=== PATIENT | male | born 1985 | race Caucasian/White ===

== ENCOUNTER 2016-09-28 16:07 | Emergency (ER) | payer SELFPAY ==
[~2016-09-28] VITALS: Ht 188 cm; Wt 101.0 kg
[~2016-09-28 16:07] MED LIST: LORTA5 PO
--- NOTE | 2016-09-28 16:13 | PD ---
HPI Chief Complaint: laceration left hand Time Seen by Provider: 16:13 Travel History International Travel<30 days: No Contact w/Intl Traveler<30days: No History of Present Illness HPI 31-year-old male presents to the emergency department for evaluation of laceration to his left hand that occurred just prior to arrival. Patient states his dogs were fighting and he put his hands to break it up. Patient states the dog bit his left hand. These are his dogs. He states that vaccinations are up-to-date. The patient denies any chronic medical problems or take any prescribed medications. He states his tetanus immunization has been within 5 years. Patient states he is left handed. He denies any allergies to medications. Patient denies any loss of range of motion, but does report severe pain with movement. [facility] Social History Alcohol Use: Yes (LAST DRANK YESTERDAY PRIOR TO TRAUMA ALERT) Tobacco Use: Yes (1 PPD) Substance Use: No Allergies-Medications (Allergen,Severity, Reaction): Coded Allergies: No Known Allergies (Unverified , 10/05/15) Reported Meds & Prescriptions Reported Meds & Active Scripts Active Augmentin (Amoxicillin-Clavulanate) 875-125 mg Tab 875 Mg PO BID 10 Days not for use in CrCl <30 ml/min. [place] 5-325 mg (Hydrocodone-Acetaminophen 5-325 mg) 5 mg/325 mg Tab 1 Tab PO Q6H PRN Review of Systems Except as stated in HPI: all other systems reviewed are Neg Physical Exam Narrative GENERAL: Well-developed well-nourished male patient, ambulatory. Afebrile. SKIN: Warm and dry. Patient has 3 lacerations to the left dorsal hand. The largest one measures approximately 11 cm just proximal to the MCPs. Patient's 2 other small lacerations to the lateral dorsal left hand that measure approximately 2 cm each. HEAD: Normocephalic. EYES: No scleral icterus. No injection or drainage. NECK: Supple, trachea midline. No JVD or lymphadenopathy. CARDIOVASCULAR: Regular rate and rhythm without murmurs, gallops, or rubs. Left radial pulse 2+. RESPIRATORY: Breath sounds equal bilaterally. No accessory muscle use. Lungs clear to auscultation. GASTROINTESTINAL: Abdomen soft, non-tender, nondistended. MUSCULOSKELETAL: No cyanosis, or edema. Patient can extend all fingers fully. He he can make a fist with his left hand. He has 5 out of 5 strength in all digits of the left hand. No evidence of tendon laceration. BACK: Nontender without obvious deformity. No CVA tenderness. Data Data Last Documented VS Vital Signs Date Time Temp Pulse Resp B/P Pulse Ox O2 Delivery O2 Flow Rate FiO2 09/28/16 16:19 97.6 65 16 114/75 100 Orders Iv Access Insert/Monitor (09/28/16 16:11) Hand, Complete ([id number]) (09/28/16 ) Ampicillin-Sulbactam Inj (Unasyn Inj) (09/28/16 16:15) Ondansetron Inj (Zofran Inj) (09/28/16 16:15) Morphine Inj (Morphine Inj) (09/28/16 16:30) Lidocaine 1% Inj (50 Ml) (Xylocaine 1% I (09/28/16 16:30) Acetamin-Hydrocod 325-5 Mg ([place] 5-325 (09/28/16 18:15) MDM Medical Decision Making Medical Screen Exam Complete: Yes Emergency Medical Condition: Yes Medical Record Reviewed: Yes Interpretation(s) x-ray of the left hand - CONCLUSION: Unremarkable examination of the left hand. Differential Diagnosis Laceration versus stop bite versus tendon laceration versus open fracture Narrative Course 31-year-old male presents to the emergency department for evaluation of left hand laceration after his dog bit him. IV access established. Patient is given morphine 5 mg IV, Zofran 4 mg IV for pain. Unasyn 3 g IV is given. X- ray of the left hand is ordered and pending. Patient gives verbal consent for laceration repair. On Physical exam, there is no evidence for tendon laceration. X-ray of the left hand is unremarkable. Lacerations are repaired. Patient is given proper wound care instructions. He is to return immediately for any evidence of infection. Patient is agreeable. The patient was discharged in stable condition with instructions, including return instructions and follow up instructions. Procedures Procedure Narrative LACERATION LOCATION: Left dorsal hand LENGTH: 11 cm NUMBER OF STITCHES/REJI: 1 horizontal mattress suture, 7 simple interrupted sutures REPAIR: The area of the laceration was prepped with Betadine and sterilely draped. The laceration was infiltrated with 1% lidocaine. The wound was copiously irrigated and explored without evidence of foreign body, tendon injury or neurovascular injury. The wound was closed using 4-0 Prolene. This was a single layer repair. A sterile dressing was applied. The patient was advised to keep the dressing clean and dry. Patient tolerated the procedure well. LACERATION LOCATION: Left dorsal hand LENGTH: 2 cm NUMBER OF STITCHES/REJI: 2 simple sutures REPAIR: The area of the laceration was prepped with Betadine and sterilely draped. The laceration was infiltrated with 1% lidocaine. The wound was copiously irrigated and explored without evidence of foreign body, tendon injury or neurovascular injury. The wound was closed using 4-0 Prolene. This was a single layer repair. A sterile dressing was applied. The patient was advised to keep the dressing clean and dry. Patient tolerated the procedure well. LACERATION LOCATION: Left dorsal hand LENGTH: 2 cm NUMBER OF STITCHES/REJI: 1 simple suture REPAIR: The area of the laceration was prepped with Betadine and sterilely draped. The laceration was infiltrated with 1% lidocaine. The wound was copiously irrigated and explored without evidence of foreign body, tendon injury or neurovascular injury. The wound was closed using 4-0 Prolene. This was a single layer repair. A sterile dressing was applied. The patient was advised to keep the dressing clean and dry. Patient tolerated the procedure well Diagnosis Primary Impression: Dog bite, hand Qualified Code: S61.452A - Dog bite, hand, left, initial encounter Referrals: Primary Care Physician call for appointment Patient Instructions: Animal Bite (ED), Care For Your Stitches (ED), General Instructions, Narcotic given in the ED Additional Instructions: Clean lacerations twice daily with soap and water and apply [id number] antibiotic ointment. Keep laceration clean and dry. No swimming or hot tubs. Take antibiotic as instructed until gone. Take Lortab as directed as needed for pain. Caution this can make you drowsy so do not drive after taking. Suture removal in 7-10 days. You may follow up with your primary care physician or return to the emergency department for this. Return to the emergency department for any acute worsening of symptoms. Med/Other Pt SpecificInfo: Prescription(s) given Scripts Hydrocodone-Acetaminophen (Lortab)5-325 Mg Tab1 Tab PO Q4H PRN (PAIN) #16 TAB Ref 0 Prov:Jass Weir MD 09/28/16 Amoxicillin-Clavulanate (Augmentin)875-125 mg [id number] Mg PO BID 10 Days Ref 0 not for use in CrCl <30 ml/min. Prov:Shalonda Jacobs 09/28/16 Disposition: 01 DISCHARGE HOME Condition: Stable Shalonda Jacobs Sep 28, 2016 16:13
[2016-09-28] MEDS ORDERED: AMPICILLIN-SULBACTAM INJ 3 GM in SODIUM CHLORIDE 0.9% INJ 100 ML IV ONE (16:15)
[2016-09-28] MEDS ORDERED: ONDANSETRON HCL 4 MG/2 ML VIAL IV PUSH ONE (16:15)
[2016-09-28 16:19] VITALS: BP 114/75; PULSE 65; RESP 16; TEMP 97.6; O2SAT 100
[2016-09-28] MEDS ORDERED: LIDOCAINE HCL 1% 50 ML VIAL INFIL ONE (16:30)
[2016-09-28] MEDS ORDERED: MORPHINE SULFATE 8 MG/ML INJ IV PUSH ONE (16:30)
--- NOTE | 2016-09-28 17:11 | RADRPT ---
EXAM DATE/TIME: 09/28/2016 16:42 [facility] COMPARISON: No previous studies available for comparison. INDICATIONS : Large laceration across posterior side of left hand, dog bite, laceration extends across 2nd to 5th m etacarpals MEDICAL HISTORY : None. SURGICAL HISTORY : None. ENCOUNTER: Initial ACUITY: 1 day PAIN SCORE: 10/10 LOCATION: Left hand FINDINGS: Three view examination of the left hand demonstrates no soft tissue swelling, dislocation, or fractur e. The carpal bones appear intact. The interphalangeal and metacarpophalangeal joints are intact. Bony mineralization is normal. CONCLUSION: Unremarkable examination of the left hand. Bob Mackey MD on September 28, 2016 at 17:09 Board Certified Radiologist. This report was verified electronically.
[2016-09-28] MEDS ORDERED: AUGM875T PO (18:11)
[2016-09-28] MEDS ORDERED: HYDR-3533 PO (18:13)
[2016-09-28] MEDS ORDERED: ACETAMINOPHEN/HYDROcodone 325 MG/5 MG TAB PO ONE (18:15)
[2016-09-28 18:51] VITALS: BP 129/71
== END 2016-09-28 18:52 | disposition home or self-care (01) ==
LOC: NEPA 16:07
DX: S61.412A Laceration without foreign body of left hand, initial encounter (principal); W54.0XXA Bitten by dog, initial encounter
CPT/HCPCS: 12005; 73130; 96374; 96375; 99283; J0295; J2270; J2405

== ENCOUNTER 2016-10-09 12:46 | Emergency (ER) | payer SELFPAY ==
[~2016-10-09 12:46] MED LIST changes: +AUGM875T PO; +HYDR-3533 PO
[2016-10-09 12:48] VITALS: BP 122/57; PULSE 74; RESP 20; TEMP 97.7; O2SAT 97
--- NOTE | 2016-10-09 13:36 | PD ---
HPI Chief Complaint: Wound/Suture/Staple Re-Check Time Seen by Provider: 13:35 Travel History International Travel<30 days: No Contact w/Intl Traveler<30days: No Traveled to known affect area: No History of Present Illness HPI 31-year-old male presents to the emergency department requesting suture removal from dog bite laceration to his left hand that occurred 11 days ago. He has been taking antibiotic as prescribed. He says he has one more pill left. He denies fever, chills, nausea, vomiting. Denies paresthesias, loss of sensation , decreased range of motion, decreased strength to the affected extremity. No known allergies. Has no other medical complaints. No other modifying factors or associated signs and symptoms. PFSH Past Medical History Hx Anticoagulant Therapy: No Cardiovascular Problems: No Chemotherapy: No Cerebrovascular Accident: No Diabetes: No Diminished Hearing: No Respiratory: No Past Surgical History Other Surgery: Yes (left hand tendon repair) Social History Alcohol Use: No Tobacco Use: Yes Substance Use: No Allergies-Medications (Allergen,Severity, Reaction): Coded Allergies: No Known Allergies (Unverified , 10/05/15) Reported Meds & Prescriptions Reported Meds & Active Scripts Active Lortab (Hydrocodone-Acetaminophen) 5-325 Mg Tab 1 Tab PO Q4H PRN Augmentin (Amoxicillin-Clavulanate) 875-125 mg Tab 875 Mg PO BID 10 Days not for use in CrCl <30 ml/min. [place] 5-325 mg (Hydrocodone-Acetaminophen 5-325 mg) 5 mg/325 mg Tab 1 Tab PO Q6H PRN Review of Systems Except as stated in HPI: all other systems reviewed are Neg Physical Exam Narrative GENERAL: Well-nourished, well-developed male patient, in no acute distress SKIN: Warm and dry. Dorsal aspect of left hand with lacerations that are well approximated and sutures intact; without erythema, edema, drainage. No signs of infection. HEAD: Atraumatic. Normocephalic. EYES: Pupils equal and round. No scleral icterus. No injection or drainage. ENT: Mucosa pink and moist. Airway patent. NECK: Trachea midline. CARDIOVASCULAR: Regular rate. RESPIRATORY: No accessory muscle use. GASTROINTESTINAL: Flat. MUSCULOSKELETAL: No obvious deformities. No clubbing. No cyanosis. No edema. NEUROLOGICAL: Awake and alert. Oriented 3. No obvious cranial nerve deficits. Motor grossly within normal limits. Normal speech. PSYCHIATRIC: Appropriate mood and affect; insight and judgment normal. Data Data Last Documented VS Vital Signs Date Time Temp Pulse Resp B/P Pulse Ox O2 Delivery O2 Flow Rate FiO2 10/09/16 12:48 97.7 74 20 122/57 97 Room Air MDM Medical Decision Making Medical Screen Exam Complete: Yes Emergency Medical Condition: Yes Medical Record Reviewed: Yes Differential Diagnosis Wound recheck, suture removal, medical clearance Narrative Course 31-year-old male with dogbite lacerations to the dorsal aspect of the left hand needing suture removal. Injury occurred 11 days ago. The wounds are well approximated with sutures intact and no signs of infection. Sutures removed. Patient tolerated well. Patient to continue and finish antibiotics as prescribed. Patient verbalizes understanding and agreement with treatment plan. Patient is medically cleared and stable for discharge. Discussed reasons to return to the emergency department. Instructed patient to follow up with primary care provider. Patient agrees with treatment plan. The patients vital signs are stable and the patient is stable for outpatient follow-up and treatment. Patient discharged home, stable and in no acute distress. Diagnosis Primary Impression: Encounter for removal of sutures Referrals: Primary Care Physician Patient Instructions: General Instructions, Stitches Removal (ED) Additional Instructions: Complete antibiotics Ibuprofen or Tylenol as directed and as needed for pain/information Follow-up with primary care provider Return to the emergency department immediately with worsening of symptoms Med/Other Pt SpecificInfo: Prescription(s) given Disposition: 01 DISCHARGE HOME Condition: Stable Perlita Santos Oct 09, 2016 13:36
== END 2016-10-09 13:43 | disposition home or self-care (01) ==
LOC: NEPB 12:46
DX: Z48.02 Encounter for removal of sutures (principal)
CPT/HCPCS: 99281